=== PATIENT | female | born 1955 | race Caucasian/White ===

== ENCOUNTER → 2016-08-29 | Outpatient (CLI) | payer BC ==
[~2016-08-29] MED LIST: ASACOL400 MG PO; ATOXIMETIN-B1 CAP PO; BENTYL20 MG PO; CLONAZEPAM1 M1 PO; HYDROCODONE BIT1 T11 PO; KEFLEX500 MG PO; MAXZIDE 25 MG-31 TAB PO; METAMUCIL1 PDR PO; PAMELOR50 MG PO; PRILOSEC40 MG PO; PROZAC40 MG PO; SENORMIN50 MG PO; VICODIN 5/500 505 MG PO; XANAX1 MG PO
[2016-08-29 02:26] LABS: BASO # 0.1 10*3/uL (0.0-0.1); BASO % 0.8 % (0.0-1.0); EOS # 0.3 10*3/uL (0.0-0.4); EOS % 2.6 % (1.0-4.0); HEMATOCRIT 36.2 % (37.0-47.0); HEMOGLOBIN 11.8 g/dl (12.0-16.0); IG # 0.1 10*3/uL (0.0-0.1); LYMPH # 3.6 10*3/uL (1.3-4.4); LYMPH % 34.9 % (27.0-41.0); MEAN CORPUSCULAR HGB 29.6 pg (27.0-31.0); MEAN CORPUSCULAR HGB CONC 32.6 g/dl (33.0-37.0); MEAN PLATELET VOLUME 9.4 fl (9.6-12.3); MONO # 0.8 10*3/uL (0.1-1.0); MONO % 7.8 % (3.0-9.0); NEUT # 5.5 10*3/uL (2.3-7.9); NEUT % 53.1 % (47.0-73.0); PLATELET COUNT AUTOMATED 332 10*3/uL (130-400); RED BLOOD COUNT 3.98 10*6/uL (4.10-5.10); RED CELL DISTRI WIDTH 13.3 % (0-14.5); WHITE BLOOD COUNT 10.3 10*3/uL (4.8-10.8)
[2016-08-29 02:40] LABS: BILIRUBIN, TOTAL 0.3 mg/dl (0.2-1.0); POTASSIUM 3.9 mmol/L (3.5-5.1); TOTAL PROTEIN 7.3 gm/dL (6.4-8.2)
[2016-08-29 06:53] LABS: VITAMIN D, 25-HYDROXY 16.2 ng/mL (30-100)
== END | disposition home or self-care (01) ==
LOC: LAB 02:08
PROVIDERS: Internal Medicine
DX: F32.9 Major depressive disorder, single episode, unspecified (principal)